=== PATIENT | male | born 1945 | race Caucasian/White ===

== ENCOUNTER 2022-04-30 12:45 | Emergency (ER) | payer MEDICARE, OTHER ==
[2022-04-30] MEDS ORDERED: methylPREDNISolone Sodium Succinate 125 MG/2 ML SDV IM ONE (13:20)
== END 2022-04-30 13:39 | disposition home or self-care (01) ==
LOC: JP.ED 12:45
DX: T63.441A Toxic effect of venom of bees, accidental (unintentional), initial encounter (principal); E78.00 Pure hypercholesterolemia, unspecified; I10 Essential (primary) hypertension; Z88.0 Allergy status to penicillin; Z79.899 Other long term (current) drug therapy
CPT/HCPCS: 96372; 99283; J2930

== ENCOUNTER 2023-04-06 08:04 | Day surgery (SDC) | payer MEDICARE, OTHER ==
[~2023-04-06 08:04] MED LIST: Propofol 200 MG/20 ML SDV ONE; fentaNYL 100 MCG/2 ML SDV ONE
[2023-04-06] MEDS ORDERED: Propofol 200 MG/20 ML SDV ONE ×2 (08:33→08:47)
[2023-04-06] MEDS ORDERED: Lactated Ringers 1,000 ML ONE (08:50)
[2023-04-06] MEDS ORDERED: Sodium Chloride 0.9% 1,000 ML IV SCH (09:30)
== END 2023-04-06 12:30 | disposition home or self-care (01) ==
LOC: JP.SDS 08:04
PROVIDERS: ATTEND Surgery
DX: R19.5 Other fecal abnormalities (principal); K57.30 Diverticulosis of large intestine without perforation or abscess without bleeding; I10 Essential (primary) hypertension; E66.9 Obesity, unspecified; I25.2 Old myocardial infarction; Z68.32 Body mass index [BMI] 32.0-32.9, adult
CPT/HCPCS: J2704; J3010; J7030; J7120